=== PATIENT | female | born 1970 | race Caucasian/White ===

== ENCOUNTER → 2018-12-25 | Outpatient (REF) | payer OTHER ==
[~2018-12-25] MED LIST: /CELE20CA PO; DOXE25CA2 OR; IBUP800T OR; LISIPOW OR; LORA2TAB OR; LYRI75CA OR; METF500T4 OR; SYNT125T OR; TRAM50TA2 OR
[2018-12-25 21:55] LABS: INFLUENZA A AMPLIFICATION POSITIVE (NEGATIVE); INFLUENZA B AMPLIFICATION NEGATIVE (NEGATIVE)
== END ==
LOC: M LAB REF 15:01
PROVIDERS: ATTEND Physician Assistant
DX: J11.1 Influenza due to unidentified influenza virus with other respiratory manifestations (principal)

== ENCOUNTER → 2021-05-17 | Outpatient (REF) | payer OTHER ==
[~2021-05-17] MED LIST changes: -/CELE20CA PO; +CELE1CAP4 PO
== END ==
LOC: M LAB REF 17:32
PROVIDERS: ATTEND Internal Medicine Nephrology
DX: E83.42 Hypomagnesemia (principal)

== ENCOUNTER → 2021-06-07 | Outpatient (CLI) | payer OTHER ==
--- NOTE | 2021-06-07 12:25 | REP ---
INDICATION: HTN CKD. COMPARISON: None. TECHNIQUE: Bilateral renal ultrasound. Bilateral renal artery duplex Doppler ultrasound. FINDINGS: Bilateral renal ultrasound: The right kidney measures 10.3 x 6.0 x 4.8 cm. The left kidney measures 10.1 x 4.2 x 5.0 cm. The kidneys are normal size. Renal cortical echogenicity is normal bilaterally. There is no calculus or hydronephrosis on the right or the left. There is no solid or cystic mass on the right or the left. Bladder: The bladder is nondistended and cannot be further evaluated. Bilateral renal artery duplex Doppler ultrasound: Right renal artery: Peak renal artery velocity: Obscured Peak aortic velocity: Obscured Renal-aortic ratio: Obscured Resistive index: Upper pole 0.58, mid pole 0.52, lower pole 0.54 The sellar a ng time: Upper pole 0.031, mid pole 0.016, lower pole 0.030. Left kidney: Peak renal artery velocity: Obscured Peak aortic velocity: Obscured Renal-aortic ratio: Obscured Resistive index: Upper pole 0.52, mid pole 0.50, lower pole 0.54 Rest cell ray ng time: Upper pole 0.028, mid pole 0.033, lower pole 0 point 020. IMPRESSION: Bilateral renal ultrasound: Negative study. Bilateral renal artery duplex Doppler ultrasound: Suboptimal study. The aorta and renal arteries are obscured by bowel gas. The renal intraparenchymal artery resistive indices and acceleration times are normal. I would recommend a repeat study for a more thorough evaluation of the aorta and renal arteries. <Electronically signed by Mauro David > 06/07/21 [id number]
== END ==
LOC: M RAD 09:20
PROVIDERS: ATTEND Internal Medicine Nephrology
DX: I12.9 Hypertensive chronic kidney disease with stage 1 through stage 4 chronic kidney disease, or unspecified chronic kidney disease (principal)

== ENCOUNTER → 2021-08-17 | Outpatient (REF) | payer OTHER ==
[2021-08-17 13:57] LABS: BACTERIA, URINE AUTO NEGATIVE (NEGATIVE); RBC, URINE AUTO 0 /HPF (0-3); SQUAMOUS EPITHELIAL CELL UR AU 0 /HPF (0-6); WBC, URINE AUTO 0 /HPF (0-3)
== END ==
LOC: M LAB REF 12:58
PROVIDERS: ATTEND Internal Medicine Nephrology
DX: E83.42 Hypomagnesemia (principal); R31.29 Other microscopic hematuria